=== PATIENT | male | born 1980 | race African-American/Black ===

== ENCOUNTER 2019-12-02 05:40 | Inpatient (IN) | payer OTHER ==
[2019-11-28 10:57] LABS: BASOPHILS % (AUTO) 0.6 % (0.0-2.0); EOSINOPHILS % (AUTO) 0.7 % (1.0-6.0); HEMATOCRIT 47.1 % (41-53); HEMOGLOBIN 16.1 g/dL (13.5-17.5); LYMPHOCYTES # (AUTO) 1.8 K/uL (1.0-4.8); LYMPHOCYTES % (AUTO) 28.8 % (22.0-44.0); MEAN CORPUSCULAR HEMOGLOBIN 31.5 pg (26.0-34.0); MEAN CORPUSCULAR HGB CONC 34.1 G/dL (31.0-37.0); MEAN CORPUSCULAR VOLUME 92 fL (80-100); MONOCYTES # (AUTO) 0.5 K/uL (0.1-1.0); MONOCYTES % (AUTO) 8.4 % (2.0-9.0); NEUTROPHILS # (AUTO) 3.9 K/uL (1.8-7.7); NEUTROPHILS % (AUTO) 61.5 % (40.0-70.0); PLATELET COUNT (AUTO) 226 K/uL (150-450); RED BLOOD CELL COUNT(AUTO) 5.09 MIL/uL (4.50-5.90); RED CELL DISTRIBUTION WIDTH 13.4 % (11.5-14.5)
[2019-11-28 11:06] LABS: ANION GAP 7 mmol/L (8-16); CALCIUM, TOTAL 8.8 mg/dL (8.8-10.5); CARBON DIOXIDE 30 mmol/L (22-29); CHLORIDE 107 mmol/L (98-107); CREATININE 0.89 mg/dL (0.60-1.30); GLOMERULAR FILTR. RATE CALC > 60 mL/min (>60); GLUCOSE,RANDOM 82 mg/dL (70-110); POTASSIUM 4.1 mmol/L (3.5-5.1); SODIUM SERUM 144 mmol/L (136-145); UREA NITROGEN, BLOOD 13 mg/dL (7-18)
[2019-11-28 11:07] LABS: PROTHROMBIN TIME 10.5 SEC (9.4-11.6)
[2019-11-28 11:12] LABS: ALANINE AMINOTRANSFERASE 71 U/L (12-78); ALBUMIN 3.8 g/dL (3.4-5.0); ALKALINE PHOSPHATASE 69 U/L (46-116); ASPARTATE AMINOTRANSFERASE 27 U/L (15-37); BILIRUBIN,TOTAL 0.5 mg/dL (0.1-1.0); TOTAL PROTEIN, SERUM 6.7 g/dL (6.4-8.2)
[2019-12-02] MEDS ORDERED: PROPOFOL IV ONE (06:39)
[2019-12-02] MEDS ORDERED: ISO OSM IV ONE (06:39)
[2019-12-02] MEDS ORDERED: RINGERS SOLUTION,LACTATED 0 ML IV ONE (06:56)
[2019-12-02] MEDS ORDERED: SODIUM CHLORIDE 0.9% 500 ML IV ONE ×3 (06:58→16:37)
[2019-12-02] MEDS ORDERED: LIDOCAINE 1%/EPI 1:200,000/PF 30 ML VIAL ONE (07:06)
[2019-12-02] MEDS ORDERED: BACITRACIN 50,000 UNITS/VIAL ONE (07:07)
[2019-12-02] MEDS ORDERED: RINGERS SOLUTION,LACTATED 1,000 ML IV ONE (07:07)
[2019-12-02] MEDS ORDERED: MICROFIBRILLAR COLLAGEN 1 GM PACKAGE TP ONE (07:07)
[2019-12-02] MEDS ORDERED: MEPERIDINE-PF 25 MG/ML VIAL IVP PRN (07:15)
[2019-12-02] MEDS ORDERED: FentaNYL CITRATE-PF 100 MCG/2 ML VIAL IVP PRN (07:15)
[2019-12-02] MEDS ORDERED: BUPIVACAINE LIPOSOME/PF 1.3%-13.3MG/ML SUSPENSION 20 ML VIAL INJ ONE (07:15)
[2019-12-02] MEDS: OXYGEN THERAPY IH SCH (08:00)
[2019-12-02] MEDS ORDERED: ZOLPIDEM TARTRATE 10 MG TABLET PO PRN (08:30)
[2019-12-02] MEDS ORDERED: BENZOCAINE/MENTHOL LOZENGE PO PRN (08:30)
[2019-12-02] MEDS ORDERED: MAG HYDROX/AL HYDROX/SIMETH 30 ML SUSP UDCUP PO PRN (08:30)
[2019-12-02] MEDS ORDERED: DiphenhydrAMINE HCL 50 MG/ML VIAL IVP PRN (08:30)
[2019-12-02] MEDS ORDERED: OxyCODONE HCL/ACETAMINOPHEN 10-325 MG TABLET PO PRN ×2 (08:30→08:45)
[2019-12-02] MEDS ORDERED: ONDANSETRON HCL 4 MG/2 ML VIAL IVP PRN ×2 (08:30→19:15)
[2019-12-02] MEDS ORDERED: DOCUSATE SODIUM 100 MG CAPSULE PO SCH (09:00)
[2019-12-02] MEDS ORDERED: BUPIVACAINE/EPI/PF 0.5% 30 ML VIAL ONE (11:26)
[2019-12-02] MEDS ORDERED: VECURONIUM BROMIDE 10 MG/VIAL IVP ONE (12:00)
[2019-12-02] MEDS ORDERED: LIDOCAINE/PF 2% 5 ML SYRINGE IVP ONE (12:00)
[2019-12-02] MEDS ORDERED: FentaNYL CITRATE-PF 100 MCG/2 ML VIAL IVP ONE (12:00)
[2019-12-02] MEDS: METOCLOPRAMIDE HCL 5 MG/ML 2 ML VIAL IVP SCH ×2 (12:00→18:18)
[2019-12-02] MEDS ORDERED: KETAMINE HCL 50 MG/ML 10 ML VIAL IVP ONE (12:00)
[2019-12-02] MEDS ORDERED: EPHEDrine SULFATE 50 MG/ML VIAL IM ONE (12:00)
[2019-12-02] MEDS ORDERED: ONDANSETRON HCL 4 MG/2 ML VIAL IVP ONE (12:00)
[2019-12-02] MEDS ORDERED: SUCCINYLCHOLINE CHLORIDE 20 MG/ML 10 ML VIAL IVP ONE (12:00)
[2019-12-02] MEDS ORDERED: ROCURONIUM BROMIDE 10 MG/ML 5 ML VIAL IVP ONE (12:00)
[2019-12-02] MEDS ORDERED: DEXAMETHASONE SOD PHOS 4 MG/ML VIAL IVP ONE (12:00)
[2019-12-02] MEDS ORDERED: MIDAZOLAM HCL 2 MG/2 ML VIAL IVP ONE (12:00)
[2019-12-02] MEDS ORDERED: PROPOFOL 1% 20 ML VIAL IVP ONE (12:00)
[2019-12-02] MEDS ORDERED: HYDROmorphone 2 MG/ML SYRINGE ONE (13:47)
[2019-12-02] MEDS: HYDROmorphone 2 MG/ML SYRINGE IVP PRN ×4 (13:49→18:18)
[2019-12-02] MEDS ORDERED: MEPERIDINE-PF 25 MG/ML VIAL ONE (13:52)
[2019-12-02] MEDS ORDERED: INFLUENZA VIRUS VACCINE QVS 2019-20 (3YR+)/PF 60 MCG/0.5 ML SYRINGE IM ONE (16:00)
[2019-12-02] MEDS: OxyCODONE HCL/ACETAMINOPHEN 10-325 MG TABLET PO PRN ×2 (16:26→21:32)
[2019-12-02] MEDS: CeFAZolin 1 GM/DEXTROSE 50 ML IV SCH ×2 (16:39→23:35)
[2019-12-02 17:00] VITALS: BP 117/65
[2019-12-02 19:10] VITALS: BP 107/52
[2019-12-02] MEDS ORDERED: 0.9% SODIUM CHLORIDE 10 ML SYRINGE IVP PRN (19:15)
[2019-12-02] MEDS ORDERED: ZOLPIDEM TARTRATE 5 MG TABLET PO PRN (19:15)
[2019-12-02] MEDS: DOCUSATE SODIUM 100 MG CAPSULE PO SCH (20:26)
[2019-12-02] MEDS: PANTOPRAZOLE SODIUM 40 MG DR TABLET PO SCH (20:26)
[2019-12-02 23:15] VITALS: BP 99/46
[2019-12-03] MEDS: METOCLOPRAMIDE HCL 5 MG/ML 2 ML VIAL IVP SCH ×4 (00:18→17:35)
[2019-12-03 00:29] VITALS: BP 112/57
[2019-12-03] MEDS: HYDROmorphone 2 MG/ML SYRINGE IVP PRN ×7 (00:30→19:56)
[2019-12-03] MEDS: OxyCODONE HCL/ACETAMINOPHEN 10-325 MG TABLET PO PRN ×3 (03:34→11:22)
[2019-12-03 04:45] VITALS: BP 99/40
[2019-12-03] MEDS: DOCUSATE SODIUM 100 MG CAPSULE PO SCH (07:30)
[2019-12-03] MEDS: PANTOPRAZOLE SODIUM 40 MG DR TABLET PO SCH (07:30)
[2019-12-03 07:36] LABS: BASOPHILS % (AUTO) 0.1 % (0.0-2.0); EOSINOPHILS % (AUTO) 0.2 % (1.0-6.0); HEMATOCRIT 41.6 % (41-53); LYMPHOCYTES # (AUTO) 1.8 K/uL (1.0-4.8); LYMPHOCYTES % (AUTO) 16.9 % (22.0-44.0); MEAN CORPUSCULAR HEMOGLOBIN 31.1 pg (26.0-34.0); MEAN CORPUSCULAR HGB CONC 33.7 G/dL (31.0-37.0); MEAN CORPUSCULAR VOLUME 92 fL (80-100); MONOCYTES # (AUTO) 0.9 K/uL (0.1-1.0); MONOCYTES % (AUTO) 8.2 % (2.0-9.0); NEUTROPHILS % (AUTO) 74.6 % (40.0-70.0); PLATELET COUNT (AUTO) 198 K/uL (150-450); RED BLOOD CELL COUNT(AUTO) 4.51 MIL/uL (4.50-5.90); RED CELL DISTRIBUTION WIDTH 13.4 % (11.5-14.5)
[2019-12-03 07:43] LABS: ANION GAP 6 mmol/L (8-16); CALCIUM, TOTAL 8.5 mg/dL (8.8-10.5); CARBON DIOXIDE 31 mmol/L (22-29); CHLORIDE 102 mmol/L (98-107); CREATININE 0.96 mg/dL (0.60-1.30); GLOMERULAR FILTR. RATE CALC > 60 mL/min (>60); GLUCOSE,RANDOM 96 mg/dL (70-110); POTASSIUM 3.9 mmol/L (3.5-5.1); SODIUM SERUM 139 mmol/L (136-145); UREA NITROGEN, BLOOD 7 mg/dL (7-18)
[2019-12-03] MEDS: OXYGEN THERAPY IH SCH (08:00)
[2019-12-03 08:49] VITALS: BP 106/57
[2019-12-03 12:00] VITALS: BP 117/49
[2019-12-03] MEDS ORDERED: MAGNESIUM SULFATE 2 GM/WATER 50 ML IV ONE (14:30)
[2019-12-03] MEDS: OxyCODONE HCL/ACETAMINOPHEN 10-325 MG TABLET PO SCH ×2 (17:34→19:55)
[2019-12-03 19:00] VITALS: BP 130/73
[2019-12-03] MEDS: DEXAMETHASONE SOD PHOS 4 MG/ML VIAL IVP PRN (23:11)
[2019-12-03] MEDS: DIAZEPAM 5 MG TABLET PO PRN (23:11)
[2019-12-03 23:33] VITALS: BP 129/75
[2019-12-04] MEDS: METOCLOPRAMIDE HCL 5 MG/ML 2 ML VIAL IVP SCH ×2 (00:16→06:19)
[2019-12-04] MEDS: OxyCODONE HCL/ACETAMINOPHEN 10-325 MG TABLET PO SCH ×6 (00:17→16:44)
[2019-12-04] MEDS: HYDROmorphone 2 MG/ML SYRINGE IVP PRN ×2 (00:29→06:20)
[2019-12-04 04:00] VITALS: BP 113/56
[2019-12-04 07:41] VITALS: BP 112/52
[2019-12-04] MEDS ORDERED: MAGNESIUM CITRATE 300 ML ORAL SOLUTION PO SCH (09:00)
[2019-12-04] MEDS: PANTOPRAZOLE SODIUM 40 MG DR TABLET PO SCH (09:24)
[2019-12-04] MEDS: DOCUSATE SODIUM 100 MG CAPSULE PO SCH (09:24)
[2019-12-04] MEDS ORDERED: MAGNESIUM HYDROXIDE SUSPENSION 30 ML UDCUP PO PRN (10:15)
[2019-12-04] MEDS ORDERED: HYDROmorphone 2 MG/ML SYRINGE IVP PRN (10:30)
[2019-12-04] MEDS: DEXAMETHASONE SOD PHOS 4 MG/ML VIAL IVP PRN (11:16)
[2019-12-04 11:28] VITALS: BP 124/72
[2019-12-04] MEDS: OxyCODONE HCL/ACETAMINOPHEN 10-325 MG TABLET PO PRN (12:43)
[2019-12-04 15:34] VITALS: BP 130/79
[2019-12-04] MEDS ORDERED: OXYC-601 PO (16:51)
[2019-12-04] MEDS ORDERED: DIAZ5 PO (16:52)
[2019-12-04] MEDS ORDERED: DOCU-275 PO (16:53)
[2019-12-04] MEDS: DIAZEPAM 5 MG TABLET PO PRN (17:26)
== END 2019-12-04 17:33 | disposition home or self-care (01) | DRG 460 ==
LOC: 4E 05:40
PROVIDERS: ADMIT Neurological Surgery; ATTEND Neurological Surgery
PROC: 0SB20ZZ Excision of Lumbar Vertebral Disc, Open Approach (ICD-10-PCS; 2019-12-02)
PROC: 4A11X4G Monitoring of Peripheral Nervous Electrical Activity, Intraoperative, External Approach (ICD-10-PCS; 2019-12-02)
PROC: 0SG10A0 Fusion of 2 or more Lumbar Vertebral Joints with Interbody Fusion Device, Anterior Approach, Anterior Column, Open Approach (ICD-10-PCS; principal; 2019-12-02 07:30)
DX: M48.061 Spinal stenosis, lumbar region without neurogenic claudication (principal); M54.17 Radiculopathy, lumbosacral region; G89.29 Other chronic pain; M54.9 Dorsalgia, unspecified; M51.36 Other intervertebral disc degeneration, lumbar region
CPT/HCPCS: 72131; 83735; 87081; 93005; 97116; 97161; 97530; 97535; C9290; G0238; G0378; J0330; J0690; J1100; J1170; J2175; J2250; J2405; J2704; J2765; J3010; J3475; J3490; J7040; J7120